=== PATIENT | female | born 1990 | race African-American/Black ===

== ENCOUNTER 2019-04-29 17:49 | Emergency (ER) | payer SELFPAY ==
[2019-04-29] MEDS ORDERED: Ibuprofen 600 MG Tab PO ONE (18:05)
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
--- NOTE | 2019-04-29 18:41 | CR ---
Indication: Injury and pain. Technique: Right knee 3 views Comparison: None Findings: Bones: Alignment is normal. No fractures or bone lesions. Joint spaces: No joint effusion. Joint spaces are well maintained. No degenerative changes. Soft tissues: Unremarkable. Impression: No sign of acute injury. Dictated by Primo Roberts MD @ Apr 29 2019 6:38PM Signed by Dr. Primo Roberts @ Apr 29 2019 6:39PM
== END 2019-04-29 19:25 | disposition home or self-care (01) ==
LOC: MW.ED 17:49
DX: R51 Headache (principal); M79.651 Pain in right thigh; R10.9 Unspecified abdominal pain; M25.561 Pain in right knee; I10 Essential (primary) hypertension; Y04.2XXA Assault by strike against or bumped into by another person, initial encounter
CPT/HCPCS: 73562; 81001; 81025; 99284; A9270